=== PATIENT | female | born 1970 | race Two or more races ===

== ENCOUNTER 2017-07-14 20:24 | Emergency (ER) | payer OTHER ==
[~2017-07-14] VITALS: Ht 167.6 cm; Wt 74.8 kg
== END 2017-07-14 23:41 | disposition home or self-care (01) ==
LOC: ER 20:24
DX: S93.491A Sprain of other ligament of right ankle, initial encounter (principal); X50.0XXA Overexertion from strenuous movement or load, initial encounter; Y93.89 Activity, other specified; Y92.098 Other place in other non-institutional residence as the place of occurrence of the external cause; Y99.8 Other external cause status

== ENCOUNTER → 2021-10-24 | Day surgery (SDC) | payer OTHER ==
[~2021-10-24] VITALS: Ht 167.6 cm; Wt 67.1 kg
== END | disposition home or self-care (01) ==
LOC: ADM 10-22 10:45 → CIR.AMB 10:00
PROVIDERS: ATTEND Obstetrics & Gynecology
DX: N87.0 Mild cervical dysplasia (principal); N72 Inflammatory disease of cervix uteri; Z20.822 Contact with and (suspected) exposure to COVID-19